=== PATIENT | female | born 1970 | race Two or more races ===

== ENCOUNTER 2017-04-21 17:56 | Emergency (ER) | payer MEDICAID ==
[~2017-04-21] VITALS: Ht 160 cm; Wt 68.0 kg
[2017-04-21 18:04] VITALS: BP 155/105
[2017-04-21] MEDS ORDERED: Bacitracin Oint UD TOPIC ONE (18:15)
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
[2017-04-21 18:16] VITALS: BP 154/101
[2017-04-21] MEDS ORDERED: TYLENOL EXTRA500 MG ORAL (18:29)
[2017-04-21] MEDS ORDERED: CYCLOBENZAPRINE10 MG ORAL (18:29)
[2017-04-21] MEDS ORDERED: BACITRACIN-P28.35 GM TP (18:35)
[2017-04-21 18:39] VITALS: BP 154/101
== END 2017-04-21 18:40 | disposition home or self-care (01) ==
LOC: EDBD 17:56 → EMR 18:15
DX: S50.812A Abrasion of left forearm, initial encounter (principal); S80.02XA Contusion of left knee, initial encounter; S80.212A Abrasion, left knee, initial encounter; V03.99XA Pedestrian with other conveyance injured in collision with car, pick-up truck or van, unspecified whether traffic or nontraffic accident, initial encounter; Y92.481 Parking lot as the place of occurrence of the external cause
CPT/HCPCS: 99284